=== PATIENT | female | born 1935 | race Caucasian/White ===

== ENCOUNTER → 2018-11-17 | Outpatient (CLI) | payer MEDICARE ==
[~2018-11-17] MED LIST: BROMFED DM COU118 ML PO; DOXYCYCLINE HYC50 MG PO; SYMBICORT 80-10.2 GM PO
--- NOTE | 2018-11-17 16:19 | Diagnostic Imaging Report ---
ADDENDUM #1 ADDENDUM: Dose modulation, iterative reconstruction, and/or weight based adjustment of the mA/kV was utilized to reduce the radiation dose to as low as reasonably achievable. Signed by: Dr. Baldev Fritz MD on 11/22/2018 5:41 PM ORIGINAL REPORT EXAM: CT Chest WITH contrast 11/17/2018 1:27 PM INDICATION: Pneumonia. COMPARISON: None TECHNIQUE: Chest was scanned utilizing a multidetector helical scanner from the lung apex through the level of the adrenal glands without administration of IV contrast. Coronal and sagittal reformations were obtained. Routine protocol was performed. RADIATION DOSE: Total DLP: 150.7 mGy*cm COMPLICATIONS: None FINDINGS: LINES/ TUBES: None. LUNGS AND AIRWAYS: There is biapical pleural-parenchymal opacity with associated bronchiectasis. There is diffuse bronchiectasis with bronchial wall thickening and scattered mucoid impaction, for example in the left lower lobe on series 126, image 61. There are multifocal tree-in-bud opacities involving all lobes, most pronounced in the lower lobes bilaterally. There are multifocal consolidative opacities with associated bronchiectasis, for example in the right upper lobe on image 46. Some of the consolidative opacities have a nodular appearance, for example in the left lower lobe posteriorly in a subpleural location measuring up to 1.1 cm on image 89. There is an apparent cavity in the right lower lobe which connects with multiple dilated bronchi, for example on image 57, this is felt to represent a confluence of cystic bronchiectasis. There is tracheomegaly. PLEURA: The pleural spaces are clear. HEART AND MEDIASTINUM: The thyroid gland is normal. No mediastinal, hilar or axillary lymphadenopathy. The heart is normal in size.. There is no pericardial effusion. Atherosclerotic calcification of the thoracic aorta, great vessels, and coronary vessels. There is moderate hiatal hernia. UPPER ABDOMEN: Limited non-contrast views of the upper abdomen show no abnormality within the visualized liver, spleen, adrenal glands, or kidneys. BONES AND SOFT TISSUES: Diffuse osteopenia. Degenerative disc changes of the visualized thoracic spine. There is mild retrolisthesis of L1 on L2. 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 Large apparent cystic cavity in the right lower lobe, likely represents a confluence of cystic bronchiectasis rather than cavity related to mycobacterial infection. Correlation with reported outside CT imaging would be helpful for comparison. Signed by: Dr. Baldev Fritz MD on 11/17/2018 4:16 PM
== END ==
LOC: CT 13:15
PROVIDERS: ATTEND Internal Medicine Critical Care Medicine
DX: J47.9 Bronchiectasis, uncomplicated (principal); J98.4 Other disorders of lung; K22.4 Dyskinesia of esophagus; K21.9 Gastro-esophageal reflux disease without esophagitis; R09.02 Hypoxemia; R26.81 Unsteadiness on feet; A43.0 Pulmonary nocardiosis; J18.9 Pneumonia, unspecified organism; A31.0 Pulmonary mycobacterial infection; R84.5 Abnormal microbiological findings in specimens from respiratory organs and thorax; R53.1 Weakness
CPT/HCPCS: 71250